=== PATIENT | female | born 2000 | race African-American/Black ===

== ENCOUNTER 2025-03-29 10:10 | Emergency (ER) | payer OTHER ==
[~2025-03-29] VITALS: Ht 167.6 cm; Wt 70.0 kg
[2025-03-29 10:13] VITALS: O2SAT 100
[2025-03-29] MEDS: ACETAMINOPHEN 500MG TABLET PO ONE (13:00)
[2025-03-29] MEDS ORDERED: NAPR-677 MT (13:04)
[2025-03-29] MEDS ORDERED: LIDO-53 TP (13:04)
[2025-03-29] MEDS: LIDOCAINE 5% PATCH TOP SCH (13:11)
[2025-03-29 13:45] VITALS: BP 124/69; PULSE 78; RESP 14; TEMP 36.7; O2SAT 100
== END 2025-03-29 13:47 | disposition home or self-care (01) ==
LOC: ER 10:10
DX: M79.10 Myalgia, unspecified site (principal); Z79.1 Long term (current) use of non-steroidal anti-inflammatories (NSAID); V49.9XXA Car occupant (driver) (passenger) injured in unspecified traffic accident, initial encounter; Y93.89 Activity, other specified; Y92.89 Other specified places as the place of occurrence of the external cause; Y99.8 Other external cause status
CPT/HCPCS: 81025; 99283